=== PATIENT | female | born 2000 | race Caucasian/White ===

== ENCOUNTER 2025-06-17 15:06 | Emergency (ER) | payer MEDICAID ==
[~2025-06-17] VITALS: Ht 162.6 cm; Wt 70.0 kg
[2025-06-17 15:10] VITALS: O2SAT 99
[2025-06-17 15:48] VITALS: TEMP 36.7; O2SAT 98
[2025-06-17 15:56] VITALS: BP 133/67; PULSE 114; RESP 20
[2025-06-17] MEDS: LIDOCAINE HCL/EPINEPHRINE 1%-EPI 1:100,000 20ML VIAL INFIL ONE (15:56)
[2025-06-17] MEDS: HYDROCODONE/ACETAMINOPHEN 10/325MG TABLET PO ONE (15:56)
[2025-06-17] MEDS: BACITRACIN ZINC OINT UDPKT TOP ONE (15:57)
[2025-06-17] MEDS ORDERED: BO1 TP (19:35)
[2025-06-17] MEDS ORDERED: CEPH500T MT (19:35)
[2025-06-17] MEDS ORDERED: HYDR-4001 MT (19:36)
[2025-06-17] MEDS ORDERED: IBUP-2030 MT (19:36)
== END 2025-06-17 19:49 | disposition home or self-care (01) ==
LOC: ER 15:06
DX: S51.812A Laceration without foreign body of left forearm, initial encounter (principal); Z59.00 Homelessness unspecified; X58.XXXA Exposure to other specified factors, initial encounter; Y93.89 Activity, other specified; Y92.89 Other specified places as the place of occurrence of the external cause; Y99.8 Other external cause status
CPT/HCPCS: 99284; 12035; J2004